=== PATIENT | male | born 1990 | race Caucasian/White ===

== ENCOUNTER 2017-07-21 13:01 | Emergency (ER) | payer BC ==
[2017-07-21 13:10] VITALS: BP 147/86
--- NOTE | 2017-07-21 13:31 | UC ---
UC General HPI - History of Current Complaint Chief Complaint: UCMedRefill Stated Complaint: MEDICATION REFILL Time Seen by Provider: 07/21/17 13:22 Hx Obtained From: Patient Onset/Duration: Gradual Onset - has had years hx chronic back and knee pain. Has been taking hydromorphone [address] Kraft's office did not call in refill last week and pt ran out of meds starting today. Pain Intensity: 6 - Allergy/Home Medications Allergies/Adverse Reactions: Allergies Allergy/AdvReac Type Severity Reaction Status Date / Time almond Allergy Rash Verified 07/21/17 13:11 penicillin G Allergy Hives Verified 07/21/17 13:11 LATEX POWDER Allergy Rash/RED Uncoded 10/31/16 13:54 AND SWOLLEN Home Medications: Home Medications Hydromorphone HCl 4 mg PO QID 07/21/17 [History Confirmed 07/21/17] Metoclopramide TAB* [Reglan TAB*] 10 mg PO TID 07/21/17 [History Confirmed 07/21] Orphenadrine Citrate 100 mg PO TID 07/21/17 [History Confirmed 07/21/17] PMH/Surg Hx/FS Hx/Imm Hx Previously Healthy: Yes - Surgical History Surgical History: Yes Surgery Procedure, Year, and Place: TUBES IN EARS; WISDOM TEETH; ADENOIDS - Family History Known Family History: Positive: None - Social History Occupation: Employed Part-time, Student Lives: With Family Alcohol Use: Rare Substance Use Type: Excessive Caffeine, Prescribed - hydromorphone Smoking Status (MU): Never Smoked Tobacco Review of Systems Constitutional: Negative Respiratory: Negative Cardiovascular: Negative Gastrointestinal: Negative Motor: Other - no new complaints-chronic back and knee pain Neurological: Negative Psychological: Negative Is Patient Immunocompromised?: No All Other Systems Reviewed And Are Negative: Yes Physical Exam Triage Information Reviewed: Yes Appearance: Well-Appearing, No Pain Distress, Well-Nourished - sitting quietly with R leg extnded for comfort Vital Signs: Initial Vital Signs Temp 98.3 F 07/21/17 13:02 Pulse 100 07/21/17 13:02 Resp 16 07/21/17 13:02 BP 147/86 07/21/17 13:02 Pulse Ox 99 07/21/17 13:02 Vital Signs Reviewed: Yes Respiratory Exam: Normal Cardiovascular Exam: Normal Musculoskeletal: Positive: Other: - baseline for pt (as per pt) Neurological Exam: Normal Psychological Exam: Normal Skin Exam: Normal Course/Dx - Differential Dx - Multi-Symptom Differential Diagnoses: Other - acute injury, chronic pain Provider Diagnoses: chronic pain Discharge - Discharge Plan Condition: Stable Disposition: HOME Referrals: Ingrid Kraft MD [Primary Care Provider] - 2 Days (as scheduled) Additional Instructions: Call Dr. Kraft's office and have emergency prescription called in to pharmacy use ibuprofen and tylenol for some relief of pain as directed
== END 2017-07-21 13:39 | disposition home or self-care (01) ==
LOC: UCEAST 13:01
DX: M54.9 Dorsalgia, unspecified (principal); M25.569 Pain in unspecified knee; G89.29 Other chronic pain
CPT/HCPCS: 99211; G0463